=== PATIENT | female | born 2000 | race African-American/Black ===

== ENCOUNTER 2022-04-25 08:38 | Emergency (ER) | payer MEDICAID ==
[~2022-04-25] VITALS: Ht 170.2 cm; Wt 72.6 kg
[2022-04-25 08:43] VITALS: BP_SYST 138
--- NOTE | 2022-04-25 09:30 | NUR ---
Patient to ER bed 3 to gown for evaluation. Side rails up.
[2022-04-25 09:35] LABS: BASOPHILS # (AUTO) 0.1 K/uL (0.0-0.2); EOSINOPHILS # (AUTO) 0.3 K/uL (0.0-0.4); EOSINOPHILS % (AUTO) 4.1 % (0.0-4.0); HEMATOCRIT 33.5 % (36-48); HEMOGLOBIN 11.2 g/dL (12.0-16.0); LYMPHOCYTES # (AUTO) 2.3 K/uL (1.0-5.5); LYMPHOCYTES % (AUTO) 33.4 % (20.5-51.5); MEAN CORPUSCULAR HEMOGLOBIN 26 pg (27-31); MEAN CORPUSCULAR HGB CONC 34 % (32-36); MEAN CORPUSCULAR VOLUME 77 fL (79.0-98.0); MONOCYTES # (AUTO) 0.6 K/uL (0.0-1.0); MONOCYTES % (AUTO) 8.7 % (1.7-9.3); NEUTROPHILS # (AUTO) 3.6 K/uL (1.8-7.7); NEUTROPHILS % (AUTO) 52.8 % (40.0-70.0); PLATELET COUNT (AUTO) 356 K/uL (130-430); RED BLOOD CELL COUNT(AUTO) 4.34 MIL/uL (4.2-6.2); RED CELL DISTRIBUTION WIDTH 18.6 % (9.0-15.0); WHITE BLOOD COUNT (AUTO) 6.7 K/uL (4.8-10.8)
[2022-04-25 09:47] LABS: BILIRUBIN,URINE NEGATIVE (NEGATIVE); BLOOD, URINE 1+ (NEGATIVE); CLARITY/URINE CLEAR (CLEAR); COLOR,URINE YELLOW (YELLOW); GLUCOSE,URINE NEGATIVE (NEGATIVE); KETONES,URINE NEGATIVE (NEGATIVE); LEUKOCYTE ESTERASE ,URINE NEGATIVE (NEGATIVE); NITRITE, URINE NEGATIVE (NEGATIVE); PROTEIN URINE NEGATIVE (NEGATIVE); UROBILINOGEN,URINE 0.2 (0.2-1.0)
[2022-04-25 10:03] LABS: CALCIUM 9.6 mg/dL (8.4-11.0); CREATININE 0.53 mg/dL (0.55-1.30)
[2022-04-25 10:07] LABS: ALBUMIN 3.7 g/dL (3.4-4.8); TOTAL BILIRUBIN 0.6 mg/dL (0.0-1.0)
[2022-04-25 10:09] LABS: BACTERIA,URINE None Seen /HPF (None Seen); WBC,URINE 0-3 /HPF (0-3)
--- NOTE | 2022-04-25 10:12 | NUR ---
PT BIB FAMILY AWAKE AND ALERT, AOX4. NO SOB OR DISTRESS. PT C/O ABDOMINAL PAIN FOR X7 DAYS WITH N/V AND DIAHREA. PT STATED SHE HAD SX FOR FREE FLUID IN PELVIS ON MAR 19, 2022. PT STATES SHE FEELS BLOATED AND TAKING ON FLUIDS.
--- NOTE | 2022-04-25 10:14 | NUR ---
MD DR LENTZ AT BEDSIDE
[2022-04-25] MEDS ORDERED: KETOROLAC TROMETHAMINE 60 MG/2 ML VIAL IM ONE (11:30)
[2022-04-25 12:08] VITALS: BP_SYST 134
--- NOTE | 2022-04-25 12:13 | NUR ---
Patient given written and verbal discharge instructions and verbalizes understanding. ER MD DR LENTZ discussed with patient the results and treatment provided. Patient in stable condition. ID arm band removed. Patient educated on pain management and to follow up with PMD. Pain Scale 4/10. Opportunity for questions provided and answered. Medication side effect fact sheet provided.
== END 2022-04-25 12:08 | disposition home or self-care (01) ==
LOC: SED 08:38
DX: R10.9 Unspecified abdominal pain (principal); Z79.899 Other long term (current) drug therapy
CPT/HCPCS: 99285; 74176; 80053; 81000; 83690; 85025; 36415; 76376; 81025; 96372; J1885